=== PATIENT | female | born 1980 | race Hispanic/Latino ===

== ENCOUNTER 2017-04-07 02:06 | Emergency (ER) | payer OTHER ==
[~2017-04-07] VITALS: Ht 154.9 cm; Wt 92.3 kg
[2017-04-07 02:09] VITALS: BP 130/81; PULSE 84; RESP 20; O2SAT 98
--- NOTE | 2017-04-07 02:36 | ED.REPORT ---
HPI-Abd Pain F Under 40 Date of Service Apr 07, 2017 ED Provider: Dr. Yovany Olivas MD A 37 year old, 22 week female with a history of previous amoeba infection presents to the ED complaining of upper abdominal pain that began at 0000 this evening. She also reports experiencing watery, brown diarrhea for the past few hours. Her discomfort has been persistent since onset. The patient denies any hematochezia, fever, nausea, vomiting or melena. She is unsure how she initially contracted the amoeba infection. [place] been out of this country [place] more than four years. Nursing Notes Stated Complaint: ABDOMINAL PAIN Chief Complaint: Female Abdominal Pain Nursing Notes Reviewed: Yes Allergies: Coded Allergies: No Known Allergies (Unverified , 04/07/17) General Time Seen by MD: 02:36 Chief Complaint Abdominal pain Hx Obtained From: Patient Arrived By: Walk-in Sudden in Onset?: No Onset Occurred: 1 - 4 hours ago Symptom Duration: Since onset Progression since Onset: Unchanged Location: : Abdomen upper Quality: Painful Radiation: : Does not radiate Severity: Current: Moderate Severity: Maximum: Moderate Associated with: Reports: Diarrhea, Denies: Fever, Hematochezia, Melena, Nausea, Vomiting Pertinent Negative: Pt denies other symptoms Recent Healthcare: No recent doctor visit, No recent hospitalization Past Medical History Past Medical History [place] infection Currently 22 weeks Past Surgical History None reported. Smoking History Unknown if Ever Smoker Social History Other Social History: Good social support, Local resident Ambulatory Status Independent Review of Systems Constitutional: Denies: Fever GI: Reports: Abdominal pain, Diarrhea, Denies: Hematochezia, Melena, Nausea, Vomiting Female: Reports: (22 weeks) Complete sys rev & neg: except as marked. Physical Exam Initial Vital Signs Vital Signs (First) Date Time Temp Pulse Resp B/P Pulse Ox O2 Delivery O2 Flow Rate FiO2 04/07/17 02:09 36.6 84 20 130/81 98 Room Air Initial VS: Reviewed Head / Eyes: Atraumatic, Normocephalic, PERRL Neck: Supple, Non-tender, Full range of motion Extremities: Vascular intact, Neuro intact, No swelling, No tenderness Neurologic: Alert, Oriented, Nonfocal Psychiatric: Mood/affect normal, Behavior normal, Normal thought content General/Constitutional: Awake, Alert, No acute distress, Well hydrated Respiratory / Chest: Atraumatic, Breath sounds NL, Breath sounds = bilat, No respiratory distress Cardiovascular: Heart rate NL, Regular rhythm, Heart sounds NL Abdomen: Atraumatic, Soft, Non-tender, No guarding, No rebound Gravid consistent with 22 week pregancy Back: Atraumatic, Inspection NL ENT: Atraumatic, Airway patent, Mucous membranes moist, Pharynx NL Skin: Atraumatic, Color NL, No rash, Warm, Dry Color / Condition: Negative: Jaundice present Re-Eval/Medical Decision Med Decision/Clinical Course Med Decision/Clinical Course: 37-year-old currently twenty-two weeks presents with brief diarrheal episode. She still some crampy discomfort but a benign belly on exam. Given that she has had documented amino, stool sample was sought but she was unable at this point to provide one. Sent home with a collection kit with plans to return with fresh stool as soon as possible. Cleared obstetrically prior to her visit here. Benign exam now. Discharged in stable condition. Re-Evaluation/Progress : Time of Eval: 04:05 Patient Status: Condition improved Re-Evaluation/Progress Note: Patient is re-evaluated. Her symptoms have improved upon recheck. She is informed of her results and diagnosis. The patient understands and agrees with the intended treatment plan. Counseled Regarding: Diagnosis, Lab results, Need for follow-up, When/why to return to ED Discharge & Departure Primary Impression: Diarrhea Diarrhea type: unspecified type Qualified Code: R19.7 - Diarrhea, unspecified Disposition: Home Discharge Condition All VS Reviewed: Yes Condition: Improved Patient Instructions: Abdominal Pain (ED), Acute Diarrhea (ED), (ED) Additional Instructions: Given your history, it is important to exclude amoeba and other parasites. Bring a fresh stool sample this morning in the snap top plastic container. Begin clear liquids including Pedialyte or Gatorade and broth and simple starches, and then advance her diet slowly as tolerated. Return promptly if you begin to see blood in your stool, worsening pain, fever, or other new symptoms of concern. Referrals: [facility] (PCP) [facility] Scribe Attestation Portions of this note were transcribed by Desiree Awan. I, Dr. Olivas personally performed the history, physical exam and medical decision-making; I reviewed and confirmed the accuracy of the information in the transcribed note. Yovany Olivas MD Apr 07, 2017 02:36 DESIREE AWAN Apr 07, 2017 02:42
[2017-04-07 04:21] VITALS: BP 136/94; PULSE 82; RESP 16; O2SAT 99
== END 2017-04-07 04:21 | disposition home or self-care (01) ==
LOC: SED 02:06
DX: O26.892 Other specified pregnancy related conditions, second trimester (principal); R19.7 Diarrhea, unspecified; R10.9 Unspecified abdominal pain; Z3A.22 22 weeks gestation of pregnancy